=== PATIENT | female | born 1980 | race Caucasian/White ===

== ENCOUNTER 2017-02-16 17:00 | Outpatient (CLI) | payer OTHER | END 2017-02-16 19:21 | disposition home or self-care (01) | LOC: GENOP 17:00 | PROVIDERS: Obstetrics & Gynecology | DX: O46.92 Antepartum hemorrhage, unspecified, second trimester (principal); Z3A.25 25 weeks gestation of pregnancy | CPT/HCPCS: 80307; 81001; G0463 ==

== ENCOUNTER 2017-04-14 04:15 | Outpatient (CLI) | payer OTHER ==
[2017-04-14 05:12] LABS: HEMOGLOBIN 11.8 gm/dl (12.3-15.3); RED BLOOD COUNT 4.03 M/UL (4.00-5.10); WHITE BLOOD COUNT 13.3 K/UL (4.5-11.0)
== END 2017-04-14 08:15 | disposition home or self-care (01) ==
LOC: GENOP 04:15
PROVIDERS: Obstetrics & Gynecology
DX: O67.9 Intrapartum hemorrhage, unspecified (principal); Z3A.34 34 weeks gestation of pregnancy
CPT/HCPCS: 36415; 80307; 81001; 85025; 96360; J7120

== ENCOUNTER → 2021-11-20 | Outpatient (CLI) | payer OTHER ==
[~2021-11-20] MED LIST: LODINE CAP 300300 MG PO; NORFLEX 100 MG100 MG PO
[2021-11-20 14:35] LABS: HEMOGLOBIN 14.1 gm/dl (12.3-15.3); RED BLOOD COUNT 4.6 M/UL (4.00-5.10); WHITE BLOOD COUNT 7.5 K/UL (4.5-11.0)
[2021-11-20 15:35] LABS: BUN/CREATININE RATIO 16 (0-10)
[2021-11-21 08:13] LABS: HCV ANTIBODY >11.0 (0.0-0.9); HIV SCREEN 4TH GENERATION WRFX Non Reactive (Non Reactive)
[2021-11-21 15:13] LABS: TREPONEMA PALLIDUM ANTIBODIES Non Reactive (Non Reactive)
== END ==
LOC: LAB 13:21
PROVIDERS: Obstetrics & Gynecology
DX: F11.10 Opioid abuse, uncomplicated (principal)
CPT/HCPCS: 36415; 80053; 85025; 86704; 86708; 86780; 86803; 87389

== ENCOUNTER 2022-02-26 10:01 | Emergency (ER) | payer OTHER ==
[2022-02-26] MEDS ORDERED: IBUPROFEN600 MG PO (12:35)
== END 2022-02-26 12:49 | disposition home or self-care (01) ==
LOC: ER1 10:01
DX: S80.12XA Contusion of left lower leg, initial encounter (principal); F17.290 Nicotine dependence, other tobacco product, uncomplicated; Z90.710 Acquired absence of both cervix and uterus; Z86.19 Personal history of other infectious and parasitic diseases; V89.2XXA Person injured in unspecified motor-vehicle accident, traffic, initial encounter; W22.10XA Striking against or struck by unspecified automobile airbag, initial encounter; Y92.410 Unspecified street and highway as the place of occurrence of the external cause
CPT/HCPCS: 73564; 73590; 99283